=== PATIENT | female | born 1995 | race American Indian/Alaskan Native ===

== ENCOUNTER 2016-08-23 19:05 | Emergency (ER) | payer OTHER ==
[2016-08-23 19:30] VITALS: BMI 38.0
[2016-08-23] MEDS ORDERED: Lactated Ringer's 1,000 ML IV ONE (19:31)
[2016-08-23 19:53] LABS: BASO % 0.2 % (0.0-2.0); EOS % 0.3 % (0.0-4.0); HEMOGLOBIN 11.1 g/dL (11.0-16.0); LYMPH # 2.3 K/uL (1.0-4.3); LYMPH % 18.4 % (20.0-40.0); MEAN CELL VOLUME 82.9 fL (81.0-99.0); MEAN CORPUSCULAR HEMOGLOBIN 26.8 pg (27.0-31.0); MEAN CORPUSCULAR HGB CONC 32.4 g/dL (33.0-37.0); MEAN PLATELET VOLUME 9.1 fL (7.2-11.7); MONO # 0.5 K/uL (0.0-0.8); MONO % 4.3 % (0.0-10.0); NEUT # 9.7 K/uL (1.8-7.0); NEUT % 76.8 % (50.0-75.0); RBC 4.13 Mil/uL (3.80-5.20); RED CELL DISTRIBUTION WIDTH 14.4 % (11.5-14.5); WHITE BLOOD COUNT 12.6 K/uL (4.8-10.8)
[2016-08-23 19:57] LABS: SQUAMOUS EPITHIAL 23 /hpf (0-5); URINE BACTERIA OCC (<OCC); URINE BILIRUBIN NEGATIVE (NEGATIVE); URINE BLOOD NEGATIVE (NEGATIVE); URINE CLARITY Hazy (Clear); URINE COLOR Yellow (YELLOW); URINE GLUCOSE (UA) NORMAL (Normal); URINE LEUKOCYTE ESTERASE TRACE Leu/uL (Negative); URINE NITRATE NEGATIVE (NEGATIVE); URINE PROTEIN NEGATIVE (NEGATIVE); URINE UROBILINOGEN NORMAL mg/dL (0.2-1.0)
[2016-08-23 20:04] LABS: ALBUMIN 3.4 g/dL (3.5-5.0)
[2016-08-23 20:06] LABS: GFR AFRICAN-AMERICAN > 60; GFR NON-AFRICAN AMERICAN > 60
[2016-08-23 20:07] LABS: ALT/SGPT 30 U/L (9-52); AST/SGOT 20 U/L (14-36); BLOOD UREA NITROGEN 6 mg/dL (7-17)
--- NOTE | 2016-08-23 21:55 | OBHP ---
Datetime: 08/23/2016 21:25 IP Adm Impression: , intrauterine ; No Active Labor IP Chief Complaint Other: back pain IP Admit Plan: Discharge home Admit Comment, IP Provider: chief complaint-back pain HPI 20 y/o at 32.5 wga with c/o back pain starting an hour prior to arrival to [place].patient s tates that she has felt discomfort in her abdomen for most part of the day.She feels pelvic discomfor t.denies burning urination or dysuria.Patient denies abdominal pain or vaginal bleeding course complicated by sga infant; patient has echo schedueld this week PMH denies PSH denies OBGYN HX Social hx denies tobacco,alcohol or illicit drug use Exam see exam section UA with 1 ketones; neg for nitrites; trace LE, +epithelial cells Blood glucose 122 wbc 12.6 A/P 20 y/o at 32.5 wga with c/o back pain. ctx.Dehydration.NST reactive -patient given iv fluids after which the contractions stopped and patient back pain improved -patient discharged home -follow up in clinic as scheduled -patient advised to increase po fluid intake - labor precautions given Pelvic Type - PN: Adequate Extremities - PN: Normal Abdomen - PN: Normal Back - PN: Normal Lungs - PN: Normal Heart - PN: Normal Neurologic - PN: Normal General - PN: Normal Gestation - Est Wks by US: 32.5 EGA AdmitDate IP: 32.5 Vital Signs Provider: Reviewed IP Chief Complaint: Other FHR Category Provider Fetus A: Category I Dilatation, Provider: 0 Genitourinary Exam: Normal DTRs - PN: Normal
== END 2016-08-23 22:00 | disposition home or self-care (01) ==
LOC: C.EROB 19:05
DX: O60.03 Preterm labor without delivery, third trimester (principal); O26.893 Other specified pregnancy related conditions, third trimester; E86.0 Dehydration; Z3A.32 32 weeks gestation of pregnancy
CPT/HCPCS: 80053; 81001; 85025; 99283; J7120

== ENCOUNTER 2016-09-02 12:41 | Emergency (ER) | payer OTHER ==
[2016-09-02 13:26] LABS: SQUAMOUS EPITHIAL 40 /hpf (0-5); URINE BACTERIA OCC (<OCC); URINE BILIRUBIN NEGATIVE (NEGATIVE); URINE BLOOD NEGATIVE (NEGATIVE); URINE CLARITY Hazy (Clear); URINE COLOR Amber (YELLOW); URINE GLUCOSE (UA) NORMAL (Normal); URINE LEUKOCYTE ESTERASE 1+ Leu/uL (Negative); URINE NITRATE NEGATIVE (NEGATIVE); URINE PROTEIN 1+ mg/dL (NEGATIVE); URINE UROBILINOGEN NORMAL mg/dL (0.2-1.0)
--- NOTE | 2016-09-02 13:57 | OBDCSUM ---
Datetime: 09/02/2016 13:55 Discharged to, Provider: Home Follow up at, Provider: [facility] Disch Instr Activity: Normal activity Disch Instr Diet: Regular Discharge Time: 09/02/2016 13:55 Follow up in weeks, Provider: 09/03/2018 Disch Referrals: None Discharge Comment, Provider: terri home po hyration ptl given fu in clinic in 1 day Discharge Diagnosis Prov Other: back pain nst 34weeks
--- NOTE | 2016-09-02 13:58 | OBHP ---
Datetime: 09/02/2016 13:53 IP Adm Impression: , intrauterine IP Chief Complaint Other: back pain IP Admit Plan: Discharge home Admit Comment, IP Provider: at 24weks came with c/o back pain started while getting augustus bed , no dysuria,no ctxs, vb, lof,+fm. obhc 1 x pmh de med pnv all nkda psh de soch denies ve closed ua neg a/p at 34weeks back pain dc home po hyration ptl given fu in clinic in 1 day Pelvic Type - PN: Adequate Extremities - PN: Normal Abdomen - PN: Normal Back - PN: Normal Breast - PN: Not Done Lungs - PN: Normal Heart - PN: Normal Thyroid - PN: Not Done Neurologic - PN: Normal HEENT - PN: Normal General - PN: Normal FHR - Baseline A Provider: 140 Contraction Comments Provider: none Comments, ACOG Physical Exam: gravid,non tender ext no edema,no calf ten Vital Signs Provider: Reviewed; Within Normal Limits NICHD Variability Prov Fetus A: Moderate 6-25bpm NICHD Accel Fetus A IP Provider: 10X10 FHR Category Provider Fetus A: Category I Dilatation, Provider: 0 Effacement, Provider: 0 Station, Provider: -3 Genitourinary Exam: Normal DTRs - PN: Normal Datetime: 08/23/2016 21:25 EGA AdmitDate IP: 32.5
== END 2016-09-02 13:55 | disposition home or self-care (01) ==
LOC: C.EROB 12:41
DX: O26.893 Other specified pregnancy related conditions, third trimester (principal); M54.5 Low back pain; Z3A.34 34 weeks gestation of pregnancy

== ENCOUNTER 2016-10-06 22:19 | Inpatient (IN) | payer OTHER ==
[2016-10-06 22:37] VITALS: BMI 36.7
[2016-10-06] MEDS ORDERED: Penicillin G 5 Million Unit Vial IVPB ONE ×2 (22:37→22:58)
[2016-10-06] MEDS ORDERED: Lactated Ringer's 1,000 ML IV SCH (22:45)
--- NOTE | 2016-10-06 22:52 | OBHP ---
Datetime: 10/06/2016 22:43 IP Adm Impression: Term, intrauterine ; Active labor IP Admit Plan: Admit to unit; Initiate labor protocol Admit Comment, IP Provider: Chief complaint-contractions HPI 21 y/o at 39 wga with c/o cntractions since 8.40 pm.getting worse.patient requesting an epodural.reports some spotting.denie sloss of fluid.reports active movement course uncomplicated ; was followed by ultrasounds for fetral grwoth secondary to obesity and inadequate interval growth PMH denies PSH denies OBGYN HX ; nvdx1; topx1; sabx1 Social hx denies tobacco,alcohol or illicit drug use Exam see exam section A/P 21 y/o at 39 wga in labor.GBS positive -admit -see orders Pelvic Type - PN: Adequate Extremities - PN: Normal Abdomen - PN: Normal Back - PN: Normal Lungs - PN: Normal Heart - PN: Normal Neurologic - PN: Normal General - PN: Normal Contraction Comments Provider: every 2-3min Gestation - Est Wks by US: 39.0 IP Hx Assessment: The History has been Reviewed and is Current EGA AdmitDate IP: 39.0 Vital Signs Provider: Reviewed; Within Normal Limits IP Chief Complaint: Uterine contractions FHR Category Provider Fetus A: Category I Dilatation, Provider: 3 Effacement, Provider: 80 Station, Provider: -2 Genitourinary Exam: Normal DTRs - PN: Normal
--- NOTE | 2016-10-06 22:56 | OBADHP ---
Datetime: 10/06/2016 22:43 Admit Comment, IP Provider: Chief complaint-contractions HPI 21 y/o at 39 wga with c/o cntractions since 8.40 pm.getting worse.patient requesting an epodural.reports some spotting.denie sloss of fluid.reports active movement course uncomplicated ; was followed by ultrasounds for fetral grwoth secondary to obesity and inadequate interval growth PMH denies PSH denies OBGYN HX ; nvdx1; topx1; sabx1 Social hx denies tobacco,alcohol or illicit drug use Exam see exam section A/P 21 y/o at 39 wga in labor.GBS positive -admit -see orders Pelvic Type - PN: Adequate Extremities - PN: Normal Abdomen - PN: Normal Back - PN: Normal Lungs - PN: Normal Heart - PN: Normal Neurologic - PN: Normal General - PN: Normal Contraction Comments Provider: every 2-3min Gestation - Est Wks by US: 39.0 IP Hx Assessment: The History has been Reviewed and is Current Vital Signs Provider: Reviewed; Within Normal Limits IP Chief Complaint: Uterine contractions FHR Category Provider Fetus A: Category I Dilatation, Provider: 3 Effacement, Provider: 80 Station, Provider: -2 Genitourinary Exam: Normal DTRs - PN: Normal EGA AdmitDate IP: 39.0 IP Adm Impression: Term, intrauterine ; Active labor IP Admit Plan: Admit to unit; Initiate labor protocol Datetime: 09/02/2016 13:53 IP Chief Complaint Other: back pain Breast - PN: Not Done Thyroid - PN: Not Done HEENT - PN: Normal FHR - Baseline A Provider: 140 Comments, ACOG Physical Exam: gravid,non tender ext no edema,no calf ten NICHD Variability Prov Fetus A: Moderate 6-25bpm NICHD Accel Fetus A IP Provider: 10X10
[2016-10-06 23:40] LABS: BASO % 0.2 % (0.0-2.0); EOS % 0.3 % (0.0-4.0); HEMATOCRIT 37.3 % (34.0-47.0); LYMPH # 3.1 K/uL (1.0-4.3); LYMPH % 25.8 % (20.0-40.0); MEAN CELL VOLUME 83.3 fL (81.0-99.0); MEAN CORPUSCULAR HEMOGLOBIN 27.1 pg (27.0-31.0); MEAN CORPUSCULAR HGB CONC 32.5 g/dL (33.0-37.0); MEAN PLATELET VOLUME 10.1 fL (7.2-11.7); MONO % 7.9 % (0.0-10.0); RED CELL DISTRIBUTION WIDTH 14.9 % (11.5-14.5); WHITE BLOOD COUNT 12.2 K/uL (4.8-10.8)
[2016-10-06 23:44] LABS: RBC URINE 11 /hpf (0-3); TRANSITIONAL EPITHIAL < 1 /hpf (0-3); URINE BACTERIA FEW (<OCC); URINE BILIRUBIN NEGATIVE (NEGATIVE); URINE BLOOD 2+ (NEGATIVE); URINE CALCIUM OXALATE CRYSTALS FEW /hpf (<OCC); URINE COLOR Yellow (YELLOW); URINE GLUCOSE (UA) NORMAL (Normal); URINE KETONE NEGATIVE (NEGATIVE); URINE LEUKOCYTE ESTERASE 2+ Leu/uL (Negative); URINE PROTEIN 1+ mg/dL (NEGATIVE); URINE UROBILINOGEN NORMAL mg/dL (0.2-1.0); WBC URINE 18 /hpf (0-5)
[2016-10-06 23:51] LABS: CHLORIDE 104 mmol/L (98-107); SODIUM 136 mmol/L (132-148)
[2016-10-06 23:52] LABS: POTASSIUM 4.4 mmol/L (3.6-5.2)
[2016-10-06 23:54] LABS: ALB/GLOB RATIO 0.9 (1.0-2.1); ALKALINE PHOSPHATASE 129 U/L (38-126); AST/SGOT 40 U/L (14-36); BLOOD UREA NITROGEN 7 mg/dL (7-17); CARBON DIOXIDE 18 mmol/L (22-30); GFR AFRICAN-AMERICAN > 60
[2016-10-06 23:55] LABS: ALT/SGPT 38 U/L (9-52); CALCIUM 9.6 mg/dl (8.6-10.4); GLUCOSE,RANDOM 81 mg/dL (65-105)
[2016-10-07] MEDS ORDERED: Bupivacaine 0.125%/FentaNYL 200 ML EPI ONE (00:25)
[2016-10-07] MEDS ORDERED: Bupivacaine HCl 0.25% PF (10 ml) Inj ONE (00:40)
[2016-10-07] MEDS ORDERED: Oxytocin 20 units in LR 2,000 ML IV ONE (01:21)
--- NOTE | 2016-10-07 01:42 | OBDS ---
DELIVERY PERSONNEL Delivery Doctor: Kwesi Cabrera MD Chocolate Coater: Odalis Elliott RN Anesthesiologist: Geena He MD MATERNAL INFORMATION Delivery Anesthesia: Epidural Medications in Delivery: pitocin Estimated Blood Loss (ml): 250 Placenta Cultured: No Maternal Complications: None RN Comments: baby girl born via . apgars 9/9 baby is stable and remains with mother. Provider Comments: of a female infant.Body and shoulders delivered without difficulty.Cord clamp ed and cut.Cord blood collected.Placenta spontaneously deliverd.First degree perineal laceration reap ired with 2-0 chromic.Fundus firm.Patient stable.Apgars 9/9 at 1 and 5 min of life. LABOR SUMMARY EDC: 10/13/2016 00:00 No. Babies in Womb: 1 Attempted: No Labor Anesthesia: Epidural LABOR INFORMATION Reason for Induction: Not Applicable Onset of Labor: 10/06/2016 20:40 Complete Dilatation: 10/07/2016 01:20 Cervical Ripening Agents: Other Other Ripening Agents: na Oxytocin: N/A Group B Beta Strep: Positive Antibiotics # of Doses: 1 Antibiotics Time of Last Dose: 2300 Steroids Given: None Reason Steroids Not Administered: Not Applicable Other Reason Not Administered: na MEMBRANES Membranes Rupture Method: Spontaneous Rupture of Membranes: 10/06/2016 23:30 Length of Rupture (hrs): 1.98 Amniotic Fluid Color: Clear Amniotic Fluid Amount: Small Amniotic Fluid Odor: Normal STAGES OF LABOR Stage 1 hrs: 4 Stage 1 min: 40 Stage 2 hrs: 0 Stage 2 min: 9 Stage 3 hrs: 0 Stage 3 min: 3 Total Time in Labor hrs: 4 Total Time in Labor min: 52 VAGINAL DELIVERY Episiotomy: None Laceration Extension: First Degree Laceration Type: Perineal Other Laceration: na Laceration Repair: Yes Laceration Repair Note: first degree perineal lacertaion repaired with 2-0 chromic Initial Vag Sponge Count: 10 Final Vag Sponge Count: 10 Initial Vag Sharps Count: 1 Final Vag Sharps Count: 1 Sponge Count Correct: N/A; Vaginal Sweep Performed Sharps Count Correct: Yes Count Comment: na BABY A INFORMATION Infant Delivery Date/Time: 10/07/2016 01:29 Method of Delivery: Vaginal Born in Route : No : N/A Forceps: N/A Vacuum Extraction: N/A Shoulder Dystocia : No SHOULDER DYSTOCIA BABY A Delivery Date/Time: 10/07/2016 01:29 PRESENTATION/POSITION BABY A Presentation: Cephalic Cephalic Presentation: Vertex Breech Presentation: N/A PLACENTA INFORMATION BABY A Placenta Delivery Time : 10/07/2016 01:32 Placenta Method of Delivery: Spontaneous Placenta Status: Delivered SCORES BABY A Heart Rate 1 min: >100 bpm Resp Effort 1 min: Good Cry Reflex Irritability 1 min: Cough or Sneeze or Pulls Away Muscle Tone 1 min: Active Motion Color 1 min: Body [place], Extremities Blue Resuscitation Effort 1 min: N/A SCORE 1 MIN: 9 Heart Rate 5 min: >100 bpm Resp Effort 5 min: Good Cry Reflex Irritability 5 min: Cough or Sneeze or Pulls Away Muscle Tone 5 min: Active Motion Color 5 min: Body [place], Extremities Blue Resuscitation Effort 5 min: N/A SCORE 5 MIN: 9 INFANT INFORMATION BABY A Gestational Age at Delivery: 39.1 Gestational Status: Term Outcome : Liveborn Condition : Stable Infant Sex: Female IDENTIFICATION/MEDS BABY A ID Band Number: [id number] ID Band Location: Left Leg; Left Arm Sensor Applied: Yes Sensor Number: [id number] Sensor Location : Cord Clamp WEIGHT/LENGTH BABY A Birthweight (gms): 3150 Infant Weight (lb): 6 Infant Weight (oz): 15 Infant Length Inches: 19.00 Length cms: 48.3 CORD INFORMATION BABY A No. 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
[2016-10-07] MEDS: Multiple Vitamins Tab PO SCH (09:54)
[2016-10-07] MEDS: Oxycodone/Acetaminophen 5/325 mg Tab PO PRN ×2 (09:56→17:34)
[2016-10-08] MEDS: Oxycodone/Acetaminophen 5/325 mg Tab PO PRN ×3 (02:19→17:14)
[2016-10-08 07:54] LABS: BASO % 0.4 % (0.0-2.0); EOS # 0.1 K/uL (0.0-0.7); HEMATOCRIT 36.2 % (34.0-47.0); LYMPH # 3.4 K/uL (1.0-4.3); LYMPH % 31.4 % (20.0-40.0); MEAN CELL VOLUME 83.4 fL (81.0-99.0); MEAN CORPUSCULAR HEMOGLOBIN 27.6 pg (27.0-31.0); MEAN CORPUSCULAR HGB CONC 33.1 g/dL (33.0-37.0); MEAN PLATELET VOLUME 9.6 fL (7.2-11.7); MONO # 0.7 K/uL (0.0-0.8); MONO % 6.2 % (0.0-10.0); RED CELL DISTRIBUTION WIDTH 15.3 % (11.5-14.5); WHITE BLOOD COUNT 10.7 K/uL (4.8-10.8)
[2016-10-08] MEDS: Multiple Vitamins Tab PO SCH (09:44)
--- NOTE | 2016-10-08 23:42 | OBPPN ---
Datetime: 10/08/2016 23:31 PP Pain Prov: Within normal limits PP Nausea Prov: Denies PP Flatus Prov: Yes PP BM Prov: No PP Breasts Prov: Normal PP Heart Prov: Normal PP Lungs Prov: Normal PP Abdomen/Uterus Prov: Normal PP Lochia Prov: Normal PP Vulva/Perineum Prov: Not Done PP CVA Tenderness Prov: Normal PP Extremities Prov: Normal PP C/S Incision Prov: Not Applicable PP Progress Prov: Normal PP Comments Phys Exam Prov: Abdomen: Soft. non distended. Fundus firm, mobile, non tender at umbilic us. Mild lochia rubra. All other systems reviewed and are negative PP Impression Prov: Normal progression PP Plan Prov: Continue present management PP Progress Note Prov: Patient seen and evaluated earlier this morning: received in bed in room 455; not really ; bottlefeeding. P.E.: as above. Obese, in NAD. Awake, alert, oriented to time, person and place. 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 P2, S/P . Afebrile, vital signs stable. Clinically stable. Plan: 1) continue present management 2) Anticipate discharge home 10/09/16 Vital Signs Provider PP: Reviewed
[2016-10-09 08:18] VITALS: BP 128/80; PULSE 93; TEMP 98.4; O2SAT 98
[2016-10-09] MEDS: Multiple Vitamins Tab PO SCH (10:49)
--- NOTE | 2016-10-09 11:40 | OBPPN ---
Datetime: 10/09/2016 11:36 PP Pain Prov: Within normal limits PP Nausea Prov: Denies PP Flatus Prov: Yes PP BM Prov: Yes PP Breasts Prov: Normal PP Heart Prov: Normal PP Lungs Prov: Normal PP Abdomen/Uterus Prov: Normal PP Lochia Prov: Normal PP Vulva/Perineum Prov: Normal PP CVA Tenderness Prov: Normal PP Extremities Prov: Normal PP C/S Incision Prov: Not Applicable PP Progress Prov: Normal PP Impression Prov: Normal progression PP Plan Prov: Continue present management; Discharge PP Progress Note Prov: pt seen and examiend and reports pian is controlled with medicatoin. pt is am bauting out of bed, voiding, passing flatus, bresat feeding, denies any lighthtenadd, dizzyness, CP, SOB. VSS PE see above GEN NAD AANo x 3 REP: CTAB/l CVS: RRR, +S1/S2 FUNDUS: Firm below leve o uf umbilucis V:E miniml lochai non foul slemming EX:T no calf tendnress b/l, negative homans sign A/P s/p ppd #2 doing well, reqesting discharge dishcarge home rto clinic 6 week precautions given Vital Signs Provider PP: Reviewed; Within Normal Limits
--- NOTE | 2016-10-09 11:40 | OBDCSUM ---
Datetime: 10/09/2016 11:17 Discharged to, Provider: Home Follow up at, Provider: [facility] Disch Instr Activity: Normal activity Disch Instr Diet: Regular Discharge Diet restrict Prov: none Discharge Instructions, Provider: Routine instructions given Discharge Diagnosis, Provider: Term Delivered Discharge Time: 10/09/2016 13:00 Follow up in weeks, Provider: 11/18/2016 CALL for appointment Disch Referrals: None Contraception discussed, Prov: Yes Disch Activity Restrictions: No exercising; No lifting; No driving; Minimize walking; Minimize stair -climbing; No sexual activity; Nothing in vagina - Terminous, tampons, douche Discharge Comment, Provider: precautions given if fevers, chills, nause, vomitng, CP, SOB, heaby bleedng mroe than 2 pads/ hour go to [facility] f/u clinic Contraception after Delivery: Not Planning to Use
[2016-10-09 17:22] VITALS: RESP 20
== END 2016-10-09 13:00 | disposition home or self-care (01) | DRG 373 ==
LOC: C.EROB 22:19 → C.4D 22:44 → C.4M 10-07 03:31
PROVIDERS: ADMIT Student in an Organized Health Care Education/Training Program; ATTEND Student in an Organized Health Care Education/Training Program
PROC: 0HQ9XZZ Repair Perineum Skin, External Approach (ICD-10-PCS; principal; 2016-10-06)
PROC: 10E0XZZ Delivery of Products of Conception, External Approach (ICD-10-PCS; 2016-10-06)
DX: O99.824 Streptococcus B carrier state complicating childbirth (principal); Z68.36 Body mass index [BMI] 36.0-36.9, adult; Z37.0 Single live birth; O70.0 First degree perineal laceration during delivery; O99.214 Obesity complicating childbirth; Z3A.39 39 weeks gestation of pregnancy